=== PATIENT | female | born 1965 | race Caucasian/White ===

== ENCOUNTER 2019-08-14 08:29 | Day surgery (SDC) | payer MEDICARE ==
[2019-08-09 10:46] LABS: HEMATOCRIT 32.8 % (36.0-47.0); HEMOGLOBIN 10.7 g/dL (12.0-15.5); MEAN CORPUSCULAR HEMOGLOBIN 29.1 pg (27.0-33.4); MEAN CORPUSCULAR HGB CONC 32.7 g/dL (32.0-36.0); MEAN CORPUSCULAR VOLUME 89 fl (80-97); PLATELET COUNT 277 10^3/uL (150-450); RED BLOOD COUNT 3.69 10^6/uL (3.72-5.28); RED CELL DISTRIBUTION WIDTH 13.6 % (11.5-14.0); WHITE BLOOD COUNT 6.3 10^3/uL (4.0-10.5)
[2019-08-09 10:51] LABS: APPEARANCE,URINE SLIGHTLY-CLOUDY; BILIRUBIN,URINE NEGATIVE (NEGATIVE); COLOR,URINE YELLOW; GLUCOSE, URINE NEGATIVE (NEGATIVE); KETONES,URINE NEGATIVE (NEGATIVE); LEUKOCYTE ESTERASE,URINE TRACE (NEGATIVE); NITRITE,URINE NEGATIVE (NEGATIVE); PROTEIN,URINE NEGATIVE (NEGATIVE); URINE SPECIFIC GRAVITY 1.016; UROBILINOGEN,URINE NEGATIVE mg/dL (<2.0)
[2019-08-09 11:10] LABS: ANION GAP 7 (5-19); BLOOD UREA NITROGEN 14 mg/dL (7-20); CALCIUM 9.5 mg/dL (8.4-10.2); CARBON DIOXIDE 26 mmol/L (22-30); CHLORIDE 109 mmol/L (98-107); GLUCOSE 93 mg/dL (75-110); POTASSIUM 4.6 mmol/L (3.6-5.0)
--- NOTE | 2019-08-09 13:02 | EKG REPORT ---
SEVERITY:- NORMAL ECG - SINUS RHYTHM : Confirmed by: Maci Solis MD 09-Aug-2019 13:00:57
[~2019-08-14 08:29] MED LIST: CEFAZOLIN SODIUM 2 GM in DEXTROSE 5%-WATER 100 ML IV PRN; LACTATED RINGERS 1000 ML IV PRN
[2019-08-14] MEDS ORDERED: METOPROLOL TARTRATE 25 MG TABLET PO PRN (09:02)
[2019-08-14] MEDS ORDERED: METOPROLOL TARTRATE 25 MG TABLET ONE (09:26)
[2019-08-14] MEDS ORDERED: FENTANYL CITRATE INJ/PF 100 MCG/2 ML AMPUL ONE (11:09)
[2019-08-14] MEDS ORDERED: MIDAZOLAM 2 MG/2 ML INJ ONE (11:09)
[2019-08-14] MEDS ORDERED: PROPOFOL INJ 200 MG/20 ML VIAL IV ONE (11:09)
[2019-08-14] MEDS ORDERED: LIDOCAINE 1%/EPINEPHRINE INJ 20 ML VIAL ONE (11:19)
[2019-08-14] MEDS ORDERED: BUPIVACAINE HCL 0.25 % INJ/PF (2.5 MG/1 ML) 30 ML VIAL ONE (11:19)
[2019-08-14] MEDS ORDERED: BUPIVACAINE HCL 0.5 % INJ/PF 30 ML SDV ONE (11:19)
[2019-08-14] MEDS ORDERED: DIPHENHYDRAMINE HCL 50 MG/ML VIAL IV PRN (12:04)
[2019-08-14] MEDS ORDERED: PROMETHAZINE HCL INJ 25 MG/1 ML VIAL IV PRN ×2 (12:04)
[2019-08-14] MEDS ORDERED: MEPERIDINE HCL/PF INJ 25 MG/1 ML DISP.SYRIN IV PRN (12:04)
[2019-08-14] MEDS ORDERED: OXYCODONE-ACETAMINOPHEN 5-325 MG TABLET PO PRN ×2 (12:04)
[2019-08-14] MEDS ORDERED: FENTANYL CITRATE INJ/PF 100 MCG/2 ML AMPUL IV PRN ×3 (12:04)
--- NOTE | 2019-08-14 12:38 | Discharge Summary ---
Discharge Summary (SDC) - Discharge Final Diagnosis: Right peroneal tendon tear Date of Surgery: 08/14/19 Discharge Date: 08/14/19 Condition: Good Treatment or Instructions: Touchdown weightbearing restriction right lower extremity. Prescriptions: Oxycodone HCl/Acetaminophen [Percocet 5-325 mg Tablet] 1 tab PO Q6 PRN #24 tablet PRN Reason: Referrals: DEVIN ZIEGLER [Primary Care Provider] - Discharge Diet: Regular Respiratory Treatments at Home: Deep Breathing/Coughing Report the Following to Your Physician Immediately: Shortness of Breath, Fever over 101 Degrees, Drainage-Foul Smelling
--- NOTE | 2019-08-14 12:40 | Operative Report ---
Operative Report DATE OF SURGERY: 08/14/19 PREOPERATIVE DIAGNOSIS: Right peroneal tendon tear OPERATION: Repair right peroneal tendon primarily. Removal of lateral malleolar hardware SURGEON: JUANITA MARTINEZ ANESTHESIA: LMAC TISSUE REMOVED OR ALTERED: Implants to CSS ESTIMATED BLOOD LOSS: Minimal PROCEDURE: With the patient in a left lateral decubitus position on the operating table the right lower extremity is prepped and draped in sterile fashion. The previous lateral malleolar incision is identified and marked with ink. The area underneath it is then subsequent insufflated with accommodation Marcaine, Xylocaine, and epinephrine. A longitudinal incision was made and carried down to the underlying plate and screws. A plate and 4 screws were removed uneventfu lly. The dissection then moved posteriorly over the peroneal tendon sheath. This is open longitudinally. The peroneal tendon is examined. There is a longitudinal rift in this. The longitudinal rift is repaired using 3-0 Ethibond suture. The tendon sheath is repaired using 0 Vicryl suture. Subcutaneous tissue with 0 Vicryl and the skin with nylon. A sterile compressive dressing and posterior plaster splint were applied and the patient's return to the PACU in satisfactory condition.
[2019-08-14 14:29] VITALS: BP 157/88
== END 2019-08-14 14:10 | disposition home or self-care (01) ==
LOC: OROUT 08:29
PROVIDERS: ATTEND Orthopaedic Surgery
DX: S86.311A Strain of muscle(s) and tendon(s) of peroneal muscle group at lower leg level, right leg, initial encounter (principal); X58.XXXA Exposure to other specified factors, initial encounter; T84.84XA Pain due to internal orthopedic prosthetic devices, implants and grafts, initial encounter; Y83.9 Surgical procedure, unspecified as the cause of abnormal reaction of the patient, or of later complication, without mention of misadventure at the time of the procedure; M25.571 Pain in right ankle and joints of right foot; Z79.899 Other long term (current) drug therapy; I25.10 Atherosclerotic heart disease of native coronary artery without angina pectoris; I10 Essential (primary) hypertension; I25.2 Old myocardial infarction; F17.210 Nicotine dependence, cigarettes, uncomplicated; J44.9 Chronic obstructive pulmonary disease, unspecified; M66.3 Spontaneous rupture of flexor tendons; E66.3 Overweight; Z68.39 Body mass index [BMI] 39.0-39.9, adult; Z79.51 Long term (current) use of inhaled steroids; E78.5 Hyperlipidemia, unspecified
CPT/HCPCS: 93005; 36415; 85027; 80048; 81001; 93010; 20680; 28200; J2250; J3490 ×2; J0690; J3010; J7060; J2704; A9270; 1470

== ENCOUNTER → 2020-07-23 | Day surgery (SDC) | payer MEDICARE ==
--- NOTE | 2020-07-23 15:49 | RADIOLOGY REPORT (SQ) ---
EXAM DESCRIPTION: ARTHRO HIP INJ W/ANESTHESIA; FLUORO/NEEDLE PLACEMENT IMAGES COMPLETED DATE/TIME: 07/23/2020 3:35 pm REASON FOR STUDY: (R24.151)OTHER ARTICULAR CARTILAGE DISORDERS, RIGHT HIP M24.151 OTHER ARTICULAR C ARTILAGE DISORDERS, RIGHT HIP COMPARISON: None. FLUOROSCOPY TIME: 0.6 minutes 1 images saved to PACS. LIMITATIONS: None. PROCEDURE: Procedure, risks, benefits and alternatives explained to patient who then gave written c onsent. The right hip was marked and a time-out was called for correct marking verification. Entry site marked using fluoroscopic guidance. Hip prepped and draped using sterile technique. Local ane sthesia achieved using 1% lidocaine injection. Hypodermic needle introduced into the joint space un baltazar direct fluoroscopic visualization. Non-ionic contrast instilled to confirm intra-articular posit ion. Dilute gadolinium solution then injected. Needle removed and entry site covered with sterile bandage. No immediate complications noted. TECHNIQUE: Digital images acquired during fluoroscopy and stored on PACS. Patient immediately take n to the MR suite for additional imaging. INJECTION LOCATION: Right hip. CONTRAST TYPE AND AMOUNT: 0.5 cc Omnipaque 10 cc Prohance/Saline mixture. IMPRESSION: SUCCESSFUL NEEDLE PLACEMENT AND INJECTION FOR RIGHT HIP MR ARTHROGRAM. COMMENT: Quality ID [id number]: Final reports for procedures using fluoroscopy that document radiation exp osure indices, or exposure time and number of fluorographic images (if radiation exposure indices are not available) TECHNICAL DOCUMENTATION: JOB ID: [id number] 2010 [employer]- All Rights Reserved Reading location - IP/workstation name: [email or web address]
--- NOTE | 2020-07-23 16:25 | RADIOLOGY REPORT (SQ) ---
EXAM DESCRIPTION: MRI RT LOWER JOINT WITH IMAGES COMPLETED DATE/TIME: 07/23/2020 3:59 pm REASON FOR STUDY: (M24.151)OTHER ARTICULAR CARTILAGE DISORDERS, RIGHT HIP M24.151 OTHER ARTICULAR C ARTILAGE DISORDERS, RIGHT HIP COMPARISON: None. TECHNIQUE: Post arthrogram imaging is performed using T1 and T1 and T2 fat saturated sequences of th e pelvis and specific hip of interest. LIMITATIONS: Body habitus. Motion artifact. FINDINGS: JOINT DISTENSION: Adequate. No loose body. BONE MARROW: No edema. No marrow replacement. FEMORAL HEAD, NECK, AND ACETABULUM: Mild osteoarthritic changes. PUBIC RAMI AND ISCHIUM: No occult fracture. SACRUM AND HARLEY: SI joints normal in signal. No occult fracture. EFFUSIONS: None. LABRUM AND CARTILAGE: Evaluation limited due to motion. MUSCLES AND SOFT TISSUES: Adductors and piriformis normal. Abductors and greater trochanteric bursa n ormal without edema or fluid. Iliopsoas bursa without fluid. Hamstring attachments without edema or t ear. PELVIC SOFT TISSUES: No masses or adenopathy. SCIATIC NERVE: Identified without masses. OTHER: No other significant finding. IMPRESSION: Mild degenerative changes. Limitations due to motion artifact. TECHNICAL DOCUMENTATION: JOB ID: [id number] 2010 [employer]- All Rights Reserved Reading location - IP/workstation name: [email or web address]
== END ==
LOC: RAD 14:03
PROVIDERS: ATTEND Family Medicine
DX: M24.151 Other articular cartilage disorders, right hip (principal)
CPT/HCPCS: 73722; 77002; 27095; A9576